=== PATIENT | male | born 1935 | race Caucasian/White ===

== ENCOUNTER → 2016-07-22 | Outpatient (CLI) | payer OTHER ==
[~2016-07-22] MED LIST: ADVIL200 MG PO; ANTIVERT/2525 MG PO; ARICEPT10 M1 PO; ASPIRIN LOW DOS81 MG PO; ASPIRIN81 M1 PO; AVODART0.5 MG PO; CATAPRES0.1 MG PO; CIPROFLOXACIN250 MG PO; DIABETA5 MG PO; DYAZIDE 25 MG-31 CAP PO; FLAGYL500 MG PO; FLOMAX0.4 MG PO; GLIMEPIRIDE2 MG PO; GLUCOPHAGE500 MG PO; IMDUR; IMDUR SA30 MG PO; ISORDIL TITRADOS5 MG PO; LIPITOR40 MG PO; LISINOPRIL40 MG PO; METFORMIN HCL500 MG PO; METFORMIN PO; METFORMIN500 MG PO; MICRO-K10 MEQ PO; NORCO 5-325 TA1 EACH PO; PEPCID20 MG PO; PLAVIX75 MG PO; POTASSIUM CHLO10 ME1; PREVACID SOLUTA30 MG PO; TENORMIN50 MG PO; VICODIN 5/500 505 MG PO; VICODIN 500 MG-1 TAB PO; ZESTRIL,PRINIVI40 MG PO; ZOCOR40 MG PO; Zofran4 MG PO
[2016-07-22 13:22] LABS: HEMOGLOBIN A1c 9.9 % (4.8-5.6)
[2016-07-22 13:35] LABS: POTASSIUM 4.5 mmol/L (3.5-5.1)
[2016-07-22 13:41] LABS: THYROID STIM HORMONE (HS) 2.29 uIU/ml (0.358-4.75)
== END | disposition home or self-care (01) ==
LOC: LAB 12:29
PROVIDERS: Family Medicine
DX: E78.00 Pure hypercholesterolemia, unspecified (principal); E11.9 Type 2 diabetes mellitus without complications

== ENCOUNTER 2016-09-16 14:26 | Inpatient (IN) | payer OTHER ==
[~2016-09-16] VITALS: Ht 182.8 cm; Wt 75.9 kg
[2016-09-16 15:22] VITALS: BP 100/58
[2016-09-16] MEDS ORDERED: METFORMIN HCL1000 MG PO (15:23)
[2016-09-16 16:03] LABS: BASO # 0.1 10*3/uL (0.0-0.1); BASO % 0.6 % (0.0-1.0); EOS # 0.3 10*3/uL (0.0-0.4); EOS % 3.1 % (1.0-4.0); HEMATOCRIT 38.2 % (42.0-52.0); HEMOGLOBIN 13.3 g/dl (14.0-18.0); IG # 0.1 10*3/uL (0.0-0.1); LYMPH # 2.7 10*3/uL (1.3-4.4); MEAN CORPUSCULAR HGB CONC 34.8 g/dl (33.0-37.0); MEAN PLATELET VOLUME 10.8 fl (9.6-12.3); MONO # 0.8 10*3/uL (0.1-1.0); MONO % 8.5 % (3.0-9.0); NEUT # 5.1 10*3/uL (2.3-7.9); PLATELET COUNT AUTOMATED 162 10*3/uL (130-400); RED BLOOD COUNT 4.15 10*6/uL (4.50-5.90); RED CELL DISTRI WIDTH 13.7 % (0-14.5)
[2016-09-16 16:20] LABS: INTERNATIONAL NORM RATIO 1.1 (2.0-3.5); PROTHROMBIN TIME 11.4 SECONDS (9.0-12.4)
[2016-09-16 16:21] LABS: ALKALINE PHOSPHATASE 49 U/L (45-117); BILIRUBIN, TOTAL 0.7 mg/dl (0.2-1.0); BUN 42 mg/dl (7-24); CARBON DIOXIDE 22 mmol/L (21-32); CHLORIDE 107 mmol/L (98-107); CKMB 0.8 ng/ml (0.5-3.6); CPK 148 U/L (39-308); EST GLOM FILT AFRICAN AMERICAN 44 ml/min; GLUCOSE 168 mg/dL (65-99); MAGNESIUM 1.6 mg/dL (1.5-2.1); POTASSIUM 5.1 mmol/L (3.5-5.1); SGOT/AST 19 IU/L (3-35); SGPT/ALT 29 U/L (12-78); SODIUM 142 mmol/L (136-145); TOTAL PROTEIN 7.7 gm/dL (6.4-8.2)
[2016-09-16 16:24] LABS: C-REACTIVE PROTEIN < 0.29 MG/DL (0-0.3)
[2016-09-16 16:26] LABS: TROPONIN I 0.072 ng/ml (<0.045)
[2016-09-16 16:32] VITALS: BP 125/65
[2016-09-16 17:16] VITALS: BP 111/58
[2016-09-16 17:59] LABS: LA>2 REFLEX 2 HR DRAW NOW
[2016-09-16 19:12] VITALS: BP 123/51
[2016-09-16 20:00] VITALS: BP 155/89
[2016-09-16 20:09] LABS: LA>2 REFLEX 4 HR DRAW NOW
[2016-09-17] VITALS: BP 119/59
[2016-09-17 06:13] LABS: BASO % 0.5 % (0.0-1.0); EOS # 0.3 10*3/uL (0.0-0.4); EOS % 3.4 % (1.0-4.0); HEMATOCRIT 38.6 % (42.0-52.0); HEMOGLOBIN 13.8 g/dl (14.0-18.0); LYMPH # 2.1 10*3/uL (1.3-4.4); LYMPH % 25.7 % (27.0-41.0); MEAN CELL VOLUME 90.8 fl (80.0-94.0); MEAN CORPUSCULAR HGB 32.5 pg (27.0-31.0); MEAN CORPUSCULAR HGB CONC 35.8 g/dl (33.0-37.0); MEAN PLATELET VOLUME 10.8 fl (9.6-12.3); MONO # 0.8 10*3/uL (0.1-1.0); MONO % 10.2 % (3.0-9.0); NEUT # 4.8 10*3/uL (2.3-7.9); NEUT % 59.8 % (47.0-73.0); PLATELET COUNT AUTOMATED 162 10*3/uL (130-400); RED BLOOD COUNT 4.25 10*6/uL (4.50-5.90); RED CELL DISTRI WIDTH 13.2 % (0-14.5)
[2016-09-17 06:15] LABS: CKMB 1.1 ng/ml (0.5-3.6)
[2016-09-17 06:21] LABS: HEMOGLOBIN A1c 7.4 % (4.8-5.6)
[2016-09-17 06:35] LABS: BUN 37 mg/dl (7-24); CARBON DIOXIDE 23 mmol/L (21-32); CHLORIDE 109 mmol/L (98-107); CHOLESTEROL 136 mg/dL (<200); EST GLOM FILT AFRICAN AMERICAN > 60 ml/min; GLUCOSE 134 mg/dL (65-99); HDL CHOLESTEROL 49 mg/dl (40-60); LDL CHOLESTEROL 63 mg/dL (9-159); MAGNESIUM 1.4 mg/dL (1.5-2.1); PHOSPHOROUS 3.1 mg/dL (2.5-4.9); POTASSIUM 4.6 mmol/L (3.5-5.1); SODIUM 143 mmol/L (136-145); TRIGLYCERIDES 122 mg/dl (<150); VLDL CHOLESTEROL 24 mg/dL (6-40)
[2016-09-17 06:59] LABS: FOLIC ACID 17.7 ng/mL (>5.38)
[2016-09-17 08:00] VITALS: BP 136/78
[2016-09-17] MEDS ORDERED: IMDUR SA60 M1 PO (09:53)
[2016-09-17] MEDS ORDERED: VITAMIN D5000 I3 PO (10:14)
[2016-09-17 10:23] LABS: BILIRUBIN NEGATIVE (NEGATIVE); BLOOD NEGATIVE (NEGATIVE); CLARITY CLEAR (CLEAR); COLOR YELLOW (YELLOW); GLUCOSE 2+ (NEGATIVE); KETONE NEGATIVE (NEGATIVE); LEUKO ESTERASE 1+ (NEGATIVE); NITRITE NEGATIVE (NEGATIVE); PH 5.5 (5.0-9.0); PROTEIN NEGATIVE (NEGATIVE)
[2016-09-17 10:35] LABS: URINE REFLEX COMMENT YES (NO)
== END 2016-09-17 10:49 | disposition home or self-care (01) | DRG 683 ==
LOC: ED 14:26 → 5E 16:45 → EDHOLD 16:45 → 5E 17:03
PROVIDERS: Emergency Medicine; Student in an Organized Health Care Education/Training Program
DX: N17.0 Acute kidney failure with tubular necrosis (principal); E87.2 Acidosis; E11.22 Type 2 diabetes mellitus with diabetic chronic kidney disease; F03.90 Unspecified dementia, unspecified severity, without behavioral disturbance, psychotic disturbance, mood disturbance, and anxiety; E86.0 Dehydration; D64.9 Anemia, unspecified; H91.90 Unspecified hearing loss, unspecified ear; J44.9 Chronic obstructive pulmonary disease, unspecified; E78.00 Pure hypercholesterolemia, unspecified; I12.9 Hypertensive chronic kidney disease with stage 1 through stage 4 chronic kidney disease, or unspecified chronic kidney disease; M19.90 Unspecified osteoarthritis, unspecified site; N40.0 Benign prostatic hyperplasia without lower urinary tract symptoms; I25.10 Atherosclerotic heart disease of native coronary artery without angina pectoris; N18.3 Chronic kidney disease, stage 3 (moderate); I25.2 Old myocardial infarction; Z86.73 Personal history of transient ischemic attack (TIA), and cerebral infarction without residual deficits; Z90.49 Acquired absence of other specified parts of digestive tract; Z83.3 Family history of diabetes mellitus; Z82.49 Family history of ischemic heart disease and other diseases of the circulatory system; Z79.82 Long term (current) use of aspirin; Z79.84 Long term (current) use of oral hypoglycemic drugs; Z79.899 Other long term (current) drug therapy

== ENCOUNTER → 2016-10-17 | Outpatient (CLI) | payer OTHER ==
[~2016-10-17] MED LIST changes: +IMDUR SA60 M1 PO; +METFORMIN HCL1000 MG PO; +VITAMIN D5000 I3 PO
[2016-10-17 13:47] LABS: POTASSIUM 5.1 mmol/L (3.5-5.1)
[2016-10-17 14:22] LABS: HEMOGLOBIN A1c 6.9 % (4.8-5.6)
== END | disposition home or self-care (01) ==
LOC: LAB 13:12
PROVIDERS: Family Medicine
DX: E11.9 Type 2 diabetes mellitus without complications (principal)

== ENCOUNTER → 2017-04-19 | Outpatient (CLI) | payer OTHER ==
[2017-04-19 18:23] LABS: BUN 24 mg/dl (7-24); CHLORIDE 108 mmol/L (98-107); CREATININE 1.31 mg/dL (0.70-1.30); POTASSIUM 4.9 mmol/L (3.5-5.1); SODIUM 143 mmol/L (136-145)
[2017-04-19 18:26] LABS: CHOLESTEROL 117 mg/dL (<200); CPK 214 U/L (39-308); HDL CHOLESTEROL 47 mg/dl (40-60); LDL CHOLESTEROL 38 mg/dL (9-159); TRIGLYCERIDES 161 mg/dl (<150); VLDL CHOLESTEROL 32 mg/dL (6-40)
== END | disposition home or self-care (01) ==
LOC: LAB 17:21
PROVIDERS: Family Medicine
DX: E11.9 Type 2 diabetes mellitus without complications (principal)

== ENCOUNTER → 2017-07-22 | Outpatient (CLI) | payer OTHER ==
[2017-07-22 13:00] LABS: BUN 27 mg/dl (7-24); CHLORIDE 108 mmol/L (98-107); CHOLESTEROL 133 mg/dL (<200); CREATININE 1.28 mg/dL (0.70-1.30); HDL CHOLESTEROL 46 mg/dl (40-60); LDL CHOLESTEROL 53 mg/dL (9-159); POTASSIUM 4.6 mmol/L (3.5-5.1); SODIUM 142 mmol/L (136-145); TRIGLYCERIDES 172 mg/dl (<150); VLDL CHOLESTEROL 34 mg/dL (6-40)
== END | disposition home or self-care (01) ==
LOC: LAB 11:47
PROVIDERS: Family Medicine
DX: E11.9 Type 2 diabetes mellitus without complications (principal); E78.00 Pure hypercholesterolemia, unspecified

== ENCOUNTER → 2019-05-27 | Outpatient (CLI) | payer OTHER ==
[2019-05-27 14:18] LABS: CREATININE 1.78 mg/dL (0.70-1.30); POTASSIUM 4.2 mmol/L (3.5-5.1)
[2019-05-27 14:29] LABS: THYROID STIM HORMONE (HS) 2.85 uIU/ml (0.358-4.75)
== END | disposition home or self-care (01) ==
LOC: LAB 13:26
PROVIDERS: Family Medicine
DX: E11.9 Type 2 diabetes mellitus without complications (principal); I10 Essential (primary) hypertension; E78.2 Mixed hyperlipidemia

== ENCOUNTER 2019-12-19 13:16 | Inpatient (IN) | payer OTHER ==
[~2019-12-19] VITALS: Ht 175.2 cm; Wt 64.0 kg
[2019-12-19 13:21] VITALS: BP 122/67
[2019-12-19 14:07] LABS: BASO # 0.1 10*3/uL (0.0-0.1); BASO % 0.9 % (0.0-1.0); EOS # 0.2 10*3/uL (0.0-0.4); EOS % 2.3 % (1.0-4.0); HEMATOCRIT 35.5 % (42.0-52.0); LYMPH # 1.4 10*3/uL (1.3-4.4); LYMPH % 16.8 % (27.0-41.0); MEAN CELL VOLUME 95.4 fl (80.0-94.0); MEAN CORPUSCULAR HGB 32.3 pg (27.0-31.0); MEAN CORPUSCULAR HGB CONC 33.8 g/dl (33.0-37.0); MEAN PLATELET VOLUME 10.8 fl (9.6-12.3); MONO # 0.7 10*3/uL (0.1-1.0); MONO % 8.6 % (3.0-9.0); NEUT # 5.8 10*3/uL (2.3-7.9); NEUT % 70.5 % (47.0-73.0); PLATELET COUNT AUTOMATED 186 10*3/uL (130-400); RED BLOOD COUNT 3.72 10*6/uL (4.50-5.90); RED CELL DISTRI WIDTH 13.4 % (0-14.5); WHITE BLOOD COUNT 8.2 10*3/uL (4.8-10.8)
[2019-12-19 14:19] LABS: ACT PARTIAL THROMBO TIME 25.6 SECONDS (20.0-32.1)
[2019-12-19 14:22] LABS: ALBUMIN 3.8 gm/dl (3.1-4.5); ALKALINE PHOSPHATASE 69 U/L (45-117); BUN 57 mg/dl (7-24); CHLORIDE 114 mmol/L (98-107); CREATININE 2.62 mg/dL (0.70-1.30); LIPASE 113 U/L (73-393); POTASSIUM 5.1 mmol/L (3.5-5.1); SGOT/AST 17 IU/L (3-35); SGPT/ALT 21 U/L (12-78); SODIUM 142 mmol/L (136-145); TOTAL PROTEIN 7.5 gm/dL (6.4-8.2); TROPONIN I 0.031 ng/ml (<0.045)
[2019-12-19 14:47] VITALS: BP 118/64
--- NOTE | 2019-12-19 15:53 | NUR ---
PT W/O ACUTE DISTRESS NOTED WITH FAMILY AT BEDSIDE,SAFETY PRECAUTIONS INTACT AND CALL LIGHT WITHIN REACH,NO COMPLAINTS VOICED PT UNABLE TO PROVIDE URINE SAMPLE.
[2019-12-19 16:26] VITALS: BP 118/60
[2019-12-19 16:45] VITALS: BP 122/72
--- NOTE | 2019-12-19 16:45 | NUR ---
The assessment has been completed. DAKOTA WILLIAM Time: 1644 A 84 year old MALE admitted to 5E under services of EDWIGE TEMPLE DO Pt. arrived via ambulance from ER. Chief complaint: DIZZINESS,DIARRHEA,DECRASED APPETITE,DECREASED FLUID INTAKE. WEAKNESS AND BACK PAIN THAT STARTED A COUPLE WEEKS AGO. DAUGHTER IN LAW STATES PT IS WORSE TODAY AND WHEN SHE KEPT TRYING TO GET HIM OUT OF BED KEPT FALLING BACK. DAKOTA WILLIAM
--- NOTE | 2019-12-19 17:00 | NUR ---
CRITICAL LACTIC ACID CALLED TO DR ORTIZ WELL BLOOD SUGAR OF 50. ORDERS RECIEVED
--- NOTE | 2019-12-19 17:10 | NUR ---
Hep Lock discontinued. Site asymptomatic. Pressure applied. Sterile dressing applied. DAKOTA WILLIAM IV started left wrist with # 22protective cath after 1 attempts. Site prepped with Chloroprep. Sterile dressing applied. Patient tolerated procedure well. DAKOTA WILLIAM
[2019-12-19] MEDS ORDERED: DONEPEZIL HYDROC5 M1 PO (17:51)
[2019-12-19] MEDS ORDERED: FINASTERIDE5 M1 PO (17:51)
[2019-12-19] MEDS ORDERED: HYDR25T PO (17:52)
--- NOTE | 2019-12-19 18:00 | NUR ---
DR ORTIZ NOTIFIED PTS MED REC UP TO DATE. HE ALSO STATES HE SPOKE WITH PTS SON WHO IS POA AND THAT PT IS A DNRCCA.
--- NOTE | 2019-12-19 18:04 | NUR ---
PTS REPEAT BLOOD GLUCOSE 109. WILL CONTINUE TO MONITOR.
[2019-12-19 20:00] VITALS: BP 153/83
[2019-12-20] VITALS: BP 150/79
--- NOTE | 2019-12-20 01:55 | NUR ---
PATIENT HAS RIPPED 3 IV'S OUT AND TUBING APART. PATIENT CLIMBING OUT OF BED AND TAKING HEART MONITOR OFF PATIENT PLACED IN BILAT SOFT WRIST RESTRAINTS AT THIS TIME.
[2019-12-20 04:52] LABS: BILIRUBIN NEGATIVE; BLOOD NEGATIVE (NEGATIVE); CLARITY CLOUDY (CLEAR); COLOR YELLOW (YELLOW); GLUCOSE NEGATIVE; KETONE NEGATIVE; LEUKO ESTERASE NEGATIVE (NEGATIVE); NITRITE NEGATIVE (NEGATIVE); SPECIFIC GRAVITY 1.015 (1.001-1.030); UROBILINOGEN 0.2 E.U./dl (0.0-1.0)
[2019-12-20 04:58] LABS: RBC 0-2 rbc/hpf (0-2); WBC 0-2 wbc/hpf (0-5)
--- NOTE | 2019-12-20 06:19 | NUR ---
PATIENT HAS SPENT THE NIGHT AT NURSES STATION IN [facility]. PATIENT HAS MANAGED TO LEAVE IV IN AT THIS TIME. BUT HEART MONITOR IS OFF PATIENT KEPT TAKING IT OFF DOCTOR ERNST TO THE FLOOR WAS INFORMED OF PATIENT NOT WEARING MONITOR SHE SAID SHE WAS FINE WITH THAT.
[2019-12-20 06:24] LABS: BASO # 0.1 10*3/uL (0.0-0.1); BASO % 0.7 % (0.0-1.0); EOS # 0.3 10*3/uL (0.0-0.4); EOS % 3.4 % (1.0-4.0); HEMATOCRIT 32.1 % (42.0-52.0); LYMPH # 1.3 10*3/uL (1.3-4.4); LYMPH % 17.5 % (27.0-41.0); MEAN CELL VOLUME 95.8 fl (80.0-94.0); MEAN CORPUSCULAR HGB 32.5 pg (27.0-31.0); MEAN PLATELET VOLUME 11.2 fl (9.6-12.3); MONO # 0.7 10*3/uL (0.1-1.0); MONO % 9.2 % (3.0-9.0); NEUT % 68.2 % (47.0-73.0); PLATELET COUNT AUTOMATED 174 10*3/uL (130-400); RED BLOOD COUNT 3.35 10*6/uL (4.50-5.90); RED CELL DISTRI WIDTH 13.6 % (0-14.5); WHITE BLOOD COUNT 7.3 10*3/uL (4.8-10.8)
[2019-12-20 06:56] LABS: ALBUMIN 3.6 gm/dl (3.1-4.5); CREATININE 2.07 mg/dL (0.70-1.30); POTASSIUM 4.5 mmol/L (3.5-5.1)
--- NOTE | 2019-12-20 07:00 | NUR ---
PT IS NOT IN RESTRAINTS AT THIS TIME.
[2019-12-20 07:04] LABS: FREE T4 1.01 ng/dl (0.76-1.46); THYROID STIM HORMONE (HS) 3.53 uIU/ml (0.358-4.75)
--- NOTE | 2019-12-20 07:24 | NUR ---
DEXTROSE GIVEN FOR BLOOD SUGAR OF 54 PER ORDER. WILL CONTINUE TO MONITOR.
--- NOTE | 2019-12-20 07:29 | NUR ---
PHYSICAL THERAPY Screen and PT eval received will follow thank you Rosa Elena Han PT
--- NOTE | 2019-12-20 07:30 | NUR ---
Occupational therapy order and nursing screen received. Will follow up with the patient for completion of an OT evaluation. Thank you. Nicole Johnson, OTR/L
--- NOTE | 2019-12-20 07:30 | NUR ---
PT RESTING IN FARA CHAIR AT @ NURSES STATION AT THIS TIME. RESPS EASY AND NON LABORED. NO S/S OF DISTRESS NOTED. VSS. WHITE BOARD UPDATED. A/O TO SELF. IVF INFUSING W/O INCIDENT. VERY [place]. NO DIARRHEA/S.S OF PAIN NOTED. POOR ORAL INTAKE. WILL CONTINUE TO MONITOR. BODY ALARM INTACT.
[2019-12-20 08:00] VITALS: BP 130/56
--- NOTE | 2019-12-20 08:00 | NUR ---
PT REFUSING BLOOD SUGAR RE-CHECK. WILL RE-ATTEMPT
[2019-12-20 08:19] LABS: VITAMIN D, 25-HYDROXY 53.3 ng/mL (30-100)
--- NOTE | 2019-12-20 08:43 | NUR ---
PT PULLING AT IV TUBING. ARM UNWRAPPED AND IV SITE CHECKED. SITE ASYMPTOMATIC. TUBIGRIP APPLIED TO ARM. WILL CONTINUE TO MONITOR. BODY ALARM INTACT.
--- NOTE | 2019-12-20 08:50 | NUR ---
PHYSICAL THERAPY Physical Therapy evaluation completed on 5th floor with full evaluation to follow. Recommend physical therapy per plan of care, usure of PLOF and home setting/set up level of care due to pt's dementia and very [place]. SNF vs Home with 24 hr care and HH pending progress and family input upon discharge. Thank you for this referral. Rosa Elena Han PT
--- NOTE | 2019-12-20 09:00 | NUR ---
case management visits with patient, patient confused and not able to carry on a conversation, case management will contact patient's family regarding discharge plan and any discharge needs
--- NOTE | 2019-12-20 09:20 | NUR ---
Occupational Therapy evaluation completed on five with full evaluation to follow. Recommend occupational therapy per plan of care and SNF versus home with HH with 27/10 supervision assist pending patient progression upon discharge. Thank you for this referral. Nicole Johnson OTR/L
--- NOTE | 2019-12-20 10:49 | NUR ---
PER DR OR[facility]
--- NOTE | 2019-12-20 11:00 | NUR ---
case management contacted patient's family, spoke to daughter in law Anabell, she stated patient lives at home with her and her , and one other family member. she states he has all of the equipment he needs at home. she stated patient will return home when discharged. she stated he has a cane to use but never ambulates alone, she states someone is always with him, discussed with her [facility] and educated her on the services they provide, she declines any services at this time, case managment will follow
--- NOTE | 2019-12-20 11:00 | NUR ---
BLOOD SUGAR 163.
--- NOTE | 2019-12-20 11:07 | NUR ---
UPDATED ON POC. QUESTIONS ANSWERED
--- NOTE | 2019-12-20 11:22 | NUR ---
PT TAKEN OFF FLOOR TO CT
--- NOTE | 2019-12-20 11:30 | NUR ---
PHYSICAL THERAPY Per discussion with Nursing, patient being tranported down for medical testing and not available for second therapy visit at this time. Will continue per POC as able. Jesus Camilo, OUTPATIENT PHARMACY MANAGER
--- NOTE | 2019-12-20 11:45 | NUR ---
PT BACK FROM CT. FOUND TO HAVE PULLED OFF ID BANDS AGAIN. REAPPLIED TO ANKLES-FALL RISK/BROWN BAND/DNRCCA/ID BAND.
[2019-12-20 12:00] VITALS: BP 124/67
--- NOTE | 2019-12-20 12:06 | NUR ---
OT NOTE Pt at nurses station up in gabino chair agreeable to 16 minute OT session. Identified by name and date of with no complaints. Pt was transferred via chair to room. Sit-stand Iftikhar x2 with w/w for UB support and safety. Functional mobility from gabino chair to hallway Iftikhar with w/w for safety and navigation. Functional mobility from hallway to bathroom, back to gabino chair Iftikhar with w/w for navigation and safety. Pt was able to stand sink side unsupported at Iftikhar for sequencing to wash hands, Standing balance F+. Pt required multiple verbal and tactile cues for safety and command follow. Challenged pts standing balance by weight shifting and crossing midline. balance f+.Pt left in gabino chair with attached table at nurses station Continue with POC as indicated. MASOOD Antony/APURVA Garsia/Ap
--- NOTE | 2019-12-20 13:21 | NUR ---
PT REFUSING TO EAT LUNCH. STATING HE DOES NOT WANT IT.
--- NOTE | 2019-12-20 15:17 | NUR ---
OCCUPATIONAL THERAPY CO-SIGN I approve of the Occupational Therapy notes written above. GUALBERTO WILLIAMSON, OTR/L
[2019-12-20 16:00] VITALS: BP 121/70
--- NOTE | 2019-12-20 16:56 | NUR ---
PT RESTING. RESPS EASY AND NON LABORED. NO S/S OF DISTRESS.BODY ALARM INTACT. WILL CONTINUE TO MONITOR.
--- NOTE | 2019-12-20 17:00 | NUR ---
PT ASSISTED TO BATHROOM PER HIS REQUEST. OFFERED TO HELP PT TO BED OR THE CHAIR-PT PICKED THE GERICHAIR. CURRENTLY EATING DINNER AT NURSES STATION. BODY ALARM ON. WILL CONTINUE TO MONITOR.
--- NOTE | 2019-12-20 17:32 | NUR ---
UPDATED ON POC.QUESTIONS ANSWERED.
[2019-12-20 20:00] VITALS: BP 152/80
--- NOTE | 2019-12-20 20:30 | NUR ---
PATIENT SITTING AT NURSES STATION IN FARA CHAIR, IN NO DISTRESS ON ROOM AIR, BLOOD NOTED TO RT SIDE, NEW SKIN TEAR FOUND ON RT ELBOW. PT CLEANED AND OPTIFOAM APPLIED. PT TOLERATED WELL. DENIES PAIN/DISCOMFORT TO AREA.
--- NOTE | 2019-12-20 20:50 | NUR ---
FAMILY UPDATED ON PT
--- NOTE | 2019-12-20 20:54 | NUR ---
PATIENT SPIT PO RESTORIL DOWN THE HALLWAY. SECOND DOSE RETRIEVED FROM PYXIS & TAKEN WITH A SIP OF GINGERALE.
--- NOTE | 2019-12-20 21:54 | NUR ---
RESTORIL EFFECTIVE. PATIENT IS SLEEPING.
[2019-12-21] VITALS: BP 108/58
--- NOTE | 2019-12-21 02:00 | NUR ---
PATIENT SLEEPING, RESPS EASY AND REGULAR ON ROOM AIR. BED ALARM MAINTAINED FOR SAFETY. CALL LIGTH IN REACH
--- NOTE | 2019-12-21 05:44 | NUR ---
dr ferreira notified of skin tear to rt arm
--- NOTE | 2019-12-21 06:00 | NUR ---
PATIENT REFUSING WOUND CARE PHOTOS
[2019-12-21 06:12] LABS: CREATININE 1.75 mg/dL (0.70-1.30); POTASSIUM 4.1 mmol/L (3.5-5.1)
--- NOTE | 2019-12-21 07:27 | NUR ---
Shift chart check completed.
[2019-12-21 08:00] VITALS: BP 136/57
--- NOTE | 2019-12-21 08:09 | NUR ---
HEEL RAISERS ON, BED IN LOWEST POSITION, BED ALARM, DNRCCA & FALL RISK SLIPPERS
--- NOTE | 2019-12-21 08:16 | NUR ---
PHYSICAL THERAPY PT screen received, pt was evaluated 12/19 and is on caseload. Thank you. Gurmeet Ocampo SPT Rosa Elena Han PT
--- NOTE | 2019-12-21 08:28 | NUR ---
OT NOTE A duplicate nursing screen was received. Patient was evaluated for occupational therapy and placed on caseload on 12/20/2019. Will continue with POC as able. Thank you. Nicole Johnson, OTR/L
--- NOTE | 2019-12-21 09:22 | NUR ---
OT NOTE Attempted OT visit this morning at 0922. At this time pt unable to arouse, nurse reported "hes very drowsy from medication". Will check back at a later date or jaida. Continue with POC when able. MASOOD Antony/APURVA Garsia/Ap
--- NOTE | 2019-12-21 09:25 | NUR ---
PHYSICAL THERAPY Patient was supine in bed this am when approached for therapy and too "drowsy" to participate secondary to recent Medication. Per discussion with Nurse, therapist advised to check back later this date prior to attempting therapy to check on patient status. Will continue per POC as able. Jesus Camilo, MOTORBOAT MECHANIC INBOARD
--- NOTE | 2019-12-21 09:55 | NUR ---
DC PICTURE TAKEN - PT REFUSED TO TAKE PO PILLS AT THIS TIME ... IV discontinued. Site asymptomatic. Pressure applied. Sterile dressing applied. VALENTINA PETER
--- NOTE | 2019-12-21 10:45 | NUR ---
PHYSICAL THERAPY Patient seen this am 1;1 for therapy visit and was supine in bed upon therapist arrival. Patient identified by name / and presented with a bit of confusion this session, requiring repeated v/c's to focus on task. Patient transfers supine to sit EOB with MIN A, needing a minute or so to collect himself. Patient completed sit to stand transfer, CGA, use of wh walker standing support and ambulated 30'x 1, wh walker, CGA straight line keeley and MIN A for all 90/180 turns secondary to very unsteady step sequence. Patient also demonstrated bouts of initial "scissoring" gait pattern and returned to supine in bed with mild fatigue. Patient remained in bed with call light, tray table and bed alarm for safety. Will continue per POC as tolerated, total treatment time 14 minutes. Jesus Camilo, TECHNOLOGY INSTRUCTOR
--- NOTE | 2019-12-21 11:03 | NUR ---
OT NOTE Pt laying supine in bed with head elevated agreeable to 15 minute OT session. Identified by name and date of with no complaints of pain. Transfer supine to EOB Iftikhar X2. Sit-stand from EOB Iftikhar with w/w for UB support and safety. Functional mobility from EOB to hallway Iftikhar with w/w for unsteady stance and crossing legs when walking. Functional mobility from hallway to bathroom Iftikhar with w/w for safety. Pt stood sink side unsupported to wash hands at Iftikhar for F- balance. Functional mobility from bathroom to EOB Iftikhar with w/w. Pt was able to tolerate appro 5 minutes of activity tolerance without fatigue. Through out session pt required multiple verbal and tactile cues for safety, walker navigation and command follow. Pt was able to postion self in bed at [facility], however required Iftikhar x2 to be pulled up in bed. Alarm active and call light in reach. Continue d/c recommended SNF. MASOOD Antony/APURVA Garsia/Ap
--- NOTE | 2019-12-21 11:13 | NUR ---
FAMILY WILL BE HERE AT 1136
--- NOTE | 2019-12-21 11:35 | NUR ---
Discharge instructions reviewed with patient/family. Patient receptive and verbalizes understanding. Follow-up care arranged. Written instructions given to patient/family. TAKEN OUT VIA WHEEL CHAIR WITH BELONGINGS VALENTINA PETER
--- NOTE | 2019-12-21 15:49 | NUR ---
OCCUPATIONAL THERAPY CO-SIGN I approve of the Occupational Therapy notes written above. GUALBERTO WILLIAMSON, OTR/L
--- NOTE | 2019-12-22 07:37 | NUR ---
PHYSICAL THERAPY CO-SIGN I approve of the Phyical Therapy notes written above. Rosa Elena Han PT
== END 2019-12-21 11:35 | disposition home or self-care (01) | DRG 640 ==
LOC: ED 13:16 → EDHOLD 15:01 → 5E 15:01
PROVIDERS: Emergency Medicine; Internal Medicine; ADMIT Internal Medicine; ATTEND Internal Medicine
DX: E86.0 Dehydration (principal); N17.0 Acute kidney failure with tubular necrosis; J44.9 Chronic obstructive pulmonary disease, unspecified; E78.00 Pure hypercholesterolemia, unspecified; M19.90 Unspecified osteoarthritis, unspecified site; D64.9 Anemia, unspecified; N40.0 Benign prostatic hyperplasia without lower urinary tract symptoms; I25.10 Atherosclerotic heart disease of native coronary artery without angina pectoris; N18.9 Chronic kidney disease, unspecified; F03.90 Unspecified dementia, unspecified severity, without behavioral disturbance, psychotic disturbance, mood disturbance, and anxiety; E11.22 Type 2 diabetes mellitus with diabetic chronic kidney disease; H91.93 Unspecified hearing loss, bilateral; S51.011A Laceration without foreign body of right elbow, initial encounter; Z66 Do not resuscitate; Z51.5 Encounter for palliative care; I12.9 Hypertensive chronic kidney disease with stage 1 through stage 4 chronic kidney disease, or unspecified chronic kidney disease; Z98.41 Cataract extraction status, right eye; Z90.49 Acquired absence of other specified parts of digestive tract; I25.2 Old myocardial infarction; Z86.73 Personal history of transient ischemic attack (TIA), and cerebral infarction without residual deficits; W18.39XA Other fall on same level, initial encounter; Y93.89 Activity, other specified; Y92.89 Other specified places as the place of occurrence of the external cause; Y99.8 Other external cause status

== ENCOUNTER → 2019-12-26 | Outpatient (CLI) | payer OTHER ==
[~2019-12-26] MED LIST changes: +DONEPEZIL HYDROC5 M1 PO; +FINASTERIDE5 M1 PO; +HYDR25T PO
[2019-12-26 14:14] LABS: BASO # 0.1 10*3/uL (0.0-0.1); BASO % 0.7 % (0.0-1.0); EOS # 0.2 10*3/uL (0.0-0.4); EOS % 2.3 % (1.0-4.0); HEMATOCRIT 38.1 % (42.0-52.0); LYMPH % 19.3 % (27.0-41.0); MEAN CELL VOLUME 94.8 fl (80.0-94.0); MEAN CORPUSCULAR HGB 32.1 pg (27.0-31.0); MEAN CORPUSCULAR HGB CONC 33.9 g/dl (33.0-37.0); MEAN PLATELET VOLUME 10.6 fl (9.6-12.3); MONO # 0.9 10*3/uL (0.1-1.0); MONO % 9.1 % (3.0-9.0); NEUT # 6.9 10*3/uL (2.3-7.9); NEUT % 67.8 % (47.0-73.0); PLATELET COUNT AUTOMATED 216 10*3/uL (130-400); RED BLOOD COUNT 4.02 10*6/uL (4.50-5.90); RED CELL DISTRI WIDTH 13.6 % (0-14.5); WHITE BLOOD COUNT 10.2 10*3/uL (4.8-10.8)
[2019-12-26 14:40] LABS: ALBUMIN 3.5 gm/dl (3.1-4.5); CREATININE 2.03 mg/dL (0.70-1.30); POTASSIUM 4.1 mmol/L (3.5-5.1); TOTAL PROTEIN 7.1 gm/dL (6.4-8.2)
== END | disposition home or self-care (01) ==
LOC: LAB 13:52
PROVIDERS: ATTEND Internal Medicine
DX: E11.9 Type 2 diabetes mellitus without complications (principal); N17.9 Acute kidney failure, unspecified; E06.0 Acute thyroiditis

== ENCOUNTER 2020-08-14 18:19 | Inpatient (IN) | payer MEDICARE ==
[~2020-08-14] VITALS: Ht 177.8 cm; Wt 80.8 kg
[2020-08-14 18:23] VITALS: BP 151/92
[2020-08-14 19:08] LABS: BASO % 0.4 % (0.0-1.0); EOS # 0.1 10*3/uL (0.0-0.4); EOS % 1.9 % (1.0-4.0); HEMATOCRIT 34.3 % (42.0-52.0); LYMPH # 0.6 10*3/uL (1.3-4.4); LYMPH % 7.6 % (27.0-41.0); MEAN CELL VOLUME 97.7 fl (80.0-94.0); MEAN CORPUSCULAR HGB 31.6 pg (27.0-31.0); MEAN CORPUSCULAR HGB CONC 32.4 g/dl (33.0-37.0); MEAN PLATELET VOLUME 11.7 fl (9.6-12.3); MONO # 0.6 10*3/uL (0.1-1.0); MONO % 8.6 % (3.0-9.0); NEUT % 80.7 % (47.0-73.0); PLATELET COUNT AUTOMATED 125 10*3/uL (130-400); RED BLOOD COUNT 3.51 10*6/uL (4.50-5.90); RED CELL DISTRI WIDTH 13.5 % (0-14.5); WHITE BLOOD COUNT 7.5 10*3/uL (4.8-10.8)
[2020-08-14 19:27] LABS: ALBUMIN 3.6 gm/dl (3.1-4.5); CREATININE 2.48 mg/dL (0.70-1.30); POTASSIUM 5.3 mmol/L (3.5-5.1)
[2020-08-14 21:33] VITALS: BP 156/80
[2020-08-14 23:15] VITALS: BP 152/80
[2020-08-15 05:50] LABS: ALBUMIN 3.3 gm/dl (3.1-4.5); CREATININE 2.38 mg/dL (0.70-1.30); POTASSIUM 4.7 mmol/L (3.5-5.1); TOTAL PROTEIN 6.5 gm/dL (6.4-8.2)
[2020-08-15 05:58] LABS: THYROID STIM HORMONE (HS) 1.83 uIU/ml (0.358-4.75)
[2020-08-15 06:20] LABS: BASO % 0.4 % (0.0-1.0); EOS # 0.2 10*3/uL (0.0-0.4); HEMATOCRIT 32.2 % (42.0-52.0); LYMPH # 1.3 10*3/uL (1.3-4.4); LYMPH % 18.2 % (27.0-41.0); MEAN CORPUSCULAR HGB 31.6 pg (27.0-31.0); MEAN CORPUSCULAR HGB CONC 32.6 g/dl (33.0-37.0); MEAN PLATELET VOLUME 11.8 fl (9.6-12.3); MONO # 0.8 10*3/uL (0.1-1.0); NEUT # 4.9 10*3/uL (2.3-7.9); NEUT % 66.9 % (47.0-73.0); PLATELET COUNT AUTOMATED 136 10*3/uL (130-400); RED BLOOD COUNT 3.32 10*6/uL (4.50-5.90); RED CELL DISTRI WIDTH 13.4 % (0-14.5); WHITE BLOOD COUNT 7.3 10*3/uL (4.8-10.8)
[2020-08-15 06:38] LABS: ACT PARTIAL THROMBO TIME 25.9 SECONDS (20.0-32.1); INTERNATIONAL NORM RATIO 1.1 (2.0-3.5)
[2020-08-15 07:30] VITALS: BP 146/83
[2020-08-15 09:30] VITALS: BP 178/76
[2020-08-15 12:00] VITALS: BP 151/68
[2020-08-15 16:00] VITALS: BP 157/55
[2020-08-15 20:00] VITALS: BP 154/81
[2020-08-16] VITALS: BP 147/78
[2020-08-16 06:46] LABS: BASO # 0.1 10*3/uL (0.0-0.1); BASO % 0.8 % (0.0-1.0); EOS # 0.4 10*3/uL (0.0-0.4); EOS % 4.8 % (1.0-4.0); HEMATOCRIT 34.8 % (42.0-52.0); LYMPH # 1.3 10*3/uL (1.3-4.4); LYMPH % 16.4 % (27.0-41.0); MEAN CELL VOLUME 97.5 fl (80.0-94.0); MEAN CORPUSCULAR HGB 32.2 pg (27.0-31.0); MEAN PLATELET VOLUME 11.7 fl (9.6-12.3); MONO # 0.9 10*3/uL (0.1-1.0); MONO % 11.2 % (3.0-9.0); NEUT # 5.2 10*3/uL (2.3-7.9); NEUT % 66.2 % (47.0-73.0); PLATELET COUNT AUTOMATED 135 10*3/uL (130-400); RED BLOOD COUNT 3.57 10*6/uL (4.50-5.90); RED CELL DISTRI WIDTH 13.6 % (0-14.5); WHITE BLOOD COUNT 7.9 10*3/uL (4.8-10.8)
[2020-08-16 07:10] LABS: CREATININE 2.09 mg/dL (0.70-1.30); POTASSIUM 4.4 mmol/L (3.5-5.1)
[2020-08-16 08:00] VITALS: BP 154/71
[2020-08-16 12:00] VITALS: BP 149/64
[2020-08-16 16:00] VITALS: BP 138/85
[2020-08-16] MEDS ORDERED: ZESTRIL40 MG PO (16:02)
[2020-08-16] MEDS ORDERED: PIOGLITAZONE HC30 MG PO (16:05)
[2020-08-16] MEDS ORDERED: Amaryl2 MG PO (16:05)
[2020-08-16] MEDS ORDERED: HYDROCHLOROTHIA25 M1 PO (16:06)
[2020-08-16 20:00] VITALS: BP 162/69
[2020-08-16] MEDS ORDERED: REMERON15 M2 PO (21:02)
[2020-08-17] VITALS: BP 152/56
[2020-08-17 06:45] LABS: BASO % 0.6 % (0.0-1.0); EOS # 0.4 10*3/uL (0.0-0.4); EOS % 5.7 % (1.0-4.0); HEMATOCRIT 37.3 % (42.0-52.0); LYMPH # 1.6 10*3/uL (1.3-4.4); MEAN CELL VOLUME 99.2 fl (80.0-94.0); MEAN CORPUSCULAR HGB 31.4 pg (27.0-31.0); MEAN CORPUSCULAR HGB CONC 31.6 g/dl (33.0-37.0); MEAN PLATELET VOLUME 11.4 fl (9.6-12.3); MONO % 13.4 % (3.0-9.0); NEUT # 4.2 10*3/uL (2.3-7.9); NEUT % 57.9 % (47.0-73.0); PLATELET COUNT AUTOMATED 148 10*3/uL (130-400); RED BLOOD COUNT 3.76 10*6/uL (4.50-5.90); RED CELL DISTRI WIDTH 13.3 % (0-14.5); WHITE BLOOD COUNT 7.2 10*3/uL (4.8-10.8)
[2020-08-17 07:03] LABS: CREATININE 2.2 mg/dL (0.70-1.30); POTASSIUM 4.7 mmol/L (3.5-5.1)
[2020-08-17 08:00] VITALS: BP 146/81
[2020-08-17] MEDS ORDERED: ARICEPT10 M1 PO (11:23)
[2020-08-17] MEDS ORDERED: NAMENDA-5 PO (11:23)
== END 2020-08-17 12:07 | disposition home or self-care (01) | DRG 637 ==
LOC: ED 18:19 → EDHOLD 19:49 → 5E 19:49 → EDHOLD 21:35 → 5E 08-15 07:16
PROVIDERS: Hospitalist; Internal Medicine; Student in an Organized Health Care Education/Training Program; ADMIT Internal Medicine; ATTEND Internal Medicine
DX: E11.649 Type 2 diabetes mellitus with hypoglycemia without coma (principal); G93.41 Metabolic encephalopathy; N17.0 Acute kidney failure with tubular necrosis; E87.5 Hyperkalemia; D53.9 Nutritional anemia, unspecified; E86.0 Dehydration; J44.9 Chronic obstructive pulmonary disease, unspecified; E78.5 Hyperlipidemia, unspecified; I12.9 Hypertensive chronic kidney disease with stage 1 through stage 4 chronic kidney disease, or unspecified chronic kidney disease; E11.22 Type 2 diabetes mellitus with diabetic chronic kidney disease; D69.6 Thrombocytopenia, unspecified; M16.11 Unilateral primary osteoarthritis, right hip; G30.9 Alzheimer's disease, unspecified; F02.80 Dementia in other diseases classified elsewhere, unspecified severity, without behavioral disturbance, psychotic disturbance, mood disturbance, and anxiety; N18.4 Chronic kidney disease, stage 4 (severe); E78.00 Pure hypercholesterolemia, unspecified; N40.0 Benign prostatic hyperplasia without lower urinary tract symptoms; Z20.822 Contact with and (suspected) exposure to COVID-19; I25.10 Atherosclerotic heart disease of native coronary artery without angina pectoris; Z90.49 Acquired absence of other specified parts of digestive tract; Z98.41 Cataract extraction status, right eye; Z83.3 Family history of diabetes mellitus; Z82.49 Family history of ischemic heart disease and other diseases of the circulatory system; Z86.73 Personal history of transient ischemic attack (TIA), and cerebral infarction without residual deficits; Z79.82 Long term (current) use of aspirin; Z79.899 Other long term (current) drug therapy

== ENCOUNTER → 2020-09-24 | Outpatient (CLI) | payer MEDICARE ==
[~2020-09-24] MED LIST changes: +Amaryl2 MG PO; +HYDROCHLOROTHIA25 M1 PO; +NAMENDA-5 PO; +PIOGLITAZONE HC30 MG PO; +REMERON15 M2 PO; +ZESTRIL40 MG PO
[2020-09-24 21:24] LABS: BILIRUBIN Negative (Negative); BLOOD Negative (Negative); CLARITY Clear (Clear); COLOR Yellow (Yellow); GLUCOSE Negative (Negative); KETONE Negative (Negative); LEUKO ESTERASE Negative (Negative); NITRITE Negative (Negative); SPECIFIC GRAVITY 1.015 (1.001-1.030); UROBILINOGEN 0.2 E.U./dl (0.0-1.0)
[2020-09-24 21:56] LABS: BACTERIA TRACE; RBC 0-2 rbc/hpf (0-2); WBC 0-2 wbc/hpf (0-5)
== END | disposition home or self-care (01) ==
LOC: LAB 20:18
PROVIDERS: ATTEND Family Medicine
DX: N17.0 Acute kidney failure with tubular necrosis (principal); E16.2 Hypoglycemia, unspecified; E87.5 Hyperkalemia; F03.90 Unspecified dementia, unspecified severity, without behavioral disturbance, psychotic disturbance, mood disturbance, and anxiety

== ENCOUNTER 2020-12-06 15:12 | Inpatient (IN) | payer MEDICARE ==
[~2020-12-06] VITALS: Ht 187.9 cm; Wt 76.7 kg
[2020-12-06 15:19] VITALS: BP 102/54
[2020-12-06 17:30] LABS: BASO # 0.1 10*3/uL (0.0-0.1); BASO % 0.8 % (0.0-1.0); EOS # 0.3 10*3/uL (0.0-0.4); EOS % 4.7 % (1.0-4.0); HEMATOCRIT 36.9 % (42.0-52.0); LYMPH # 1.5 10*3/uL (1.3-4.4); LYMPH % 22.1 % (27.0-41.0); MEAN CELL VOLUME 94.9 fl (80.0-94.0); MEAN CORPUSCULAR HGB 31.6 pg (27.0-31.0); MEAN CORPUSCULAR HGB CONC 33.3 g/dl (33.0-37.0); MONO # 0.7 10*3/uL (0.1-1.0); MONO % 9.8 % (3.0-9.0); NEUT # 4.1 10*3/uL (2.3-7.9); NEUT % 62.1 % (47.0-73.0); PLATELET COUNT AUTOMATED 121 10*3/uL (130-400); RED BLOOD COUNT 3.89 10*6/uL (4.50-5.90); RED CELL DISTRI WIDTH 13.3 % (0-14.5); WHITE BLOOD COUNT 6.6 10*3/uL (4.8-10.8)
[2020-12-06 17:44] LABS: ALBUMIN 3.1 gm/dl (3.1-4.5); CREATININE 1.84 mg/dL (0.70-1.30); POTASSIUM 3.9 mmol/L (3.5-5.1); TOTAL PROTEIN 6.7 gm/dL (6.4-8.2)
[2020-12-06 19:00] VITALS: BP 112/62
[2020-12-06 23:00] VITALS: BP 118/68
[2020-12-07 01:50] VITALS: BP 146/83
[2020-12-07 07:06] LABS: BASO % 0.5 % (0.0-1.0); EOS # 0.3 10*3/uL (0.0-0.4); EOS % 4.5 % (1.0-4.0); HEMATOCRIT 34.3 % (42.0-52.0); LYMPH # 1.3 10*3/uL (1.3-4.4); LYMPH % 17.6 % (27.0-41.0); MEAN CORPUSCULAR HGB 31.6 pg (27.0-31.0); MEAN CORPUSCULAR HGB CONC 34.4 g/dl (33.0-37.0); MONO # 0.7 10*3/uL (0.1-1.0); MONO % 9.8 % (3.0-9.0); NEUT # 4.9 10*3/uL (2.3-7.9); NEUT % 67.1 % (47.0-73.0); PLATELET COUNT AUTOMATED 118 10*3/uL (130-400); RED BLOOD COUNT 3.73 10*6/uL (4.50-5.90); RED CELL DISTRI WIDTH 13.4 % (0-14.5); WHITE BLOOD COUNT 7.3 10*3/uL (4.8-10.8)
[2020-12-07 07:13] LABS: ALBUMIN 3.2 gm/dl (3.1-4.5); CREATININE 1.69 mg/dL (0.70-1.30); POTASSIUM 3.7 mmol/L (3.5-5.1); TOTAL PROTEIN 6.8 gm/dL (6.4-8.2)
[2020-12-07 08:00] VITALS: BP 166/98
[2020-12-07 10:15] LABS: VITAMIN D, 25-HYDROXY 52.3 ng/mL (30-100)
[2020-12-07 16:00] VITALS: BP 186/82
[2020-12-07] MEDS ORDERED: DIVALPROEX SOD125 MG PO (18:00)
[2020-12-07 20:00] VITALS: BP 159/94
[2020-12-08] VITALS: BP 184/86
[2020-12-08 07:31] LABS: POTASSIUM 3.7 mmol/L (3.5-5.1)
[2020-12-08 07:35] LABS: CREATININE 1.55 mg/dL (0.70-1.30)
[2020-12-08 08:00] VITALS: BP 136/85
[2020-12-08 12:00] VITALS: BP 116/73
== END 2020-12-08 14:00 | disposition hospice, home (50) | DRG 64 ==
LOC: ED 15:12 → EDHOLD 19:18 → 4E 19:18
PROVIDERS: Hospitalist; Internal Medicine; Student in an Organized Health Care Education/Training Program; ADMIT Internal Medicine; ATTEND Internal Medicine
DX: I63.9 Cerebral infarction, unspecified (principal); G93.41 Metabolic encephalopathy; E87.2 Acidosis; N18.4 Chronic kidney disease, stage 4 (severe); R62.7 Adult failure to thrive; R00.1 Bradycardia, unspecified; Z66 Do not resuscitate; N40.0 Benign prostatic hyperplasia without lower urinary tract symptoms; Z51.5 Encounter for palliative care; D53.9 Nutritional anemia, unspecified; Z20.822 Contact with and (suspected) exposure to COVID-19; D69.6 Thrombocytopenia, unspecified; I12.9 Hypertensive chronic kidney disease with stage 1 through stage 4 chronic kidney disease, or unspecified chronic kidney disease; E11.65 Type 2 diabetes mellitus with hyperglycemia; E11.22 Type 2 diabetes mellitus with diabetic chronic kidney disease; G30.9 Alzheimer's disease, unspecified; F02.80 Dementia in other diseases classified elsewhere, unspecified severity, without behavioral disturbance, psychotic disturbance, mood disturbance, and anxiety; J44.9 Chronic obstructive pulmonary disease, unspecified; E78.00 Pure hypercholesterolemia, unspecified; M19.90 Unspecified osteoarthritis, unspecified site; Z90.49 Acquired absence of other specified parts of digestive tract; I25.2 Old myocardial infarction; Z95.5 Presence of coronary angioplasty implant and graft; Z79.82 Long term (current) use of aspirin; Z79.899 Other long term (current) drug therapy

== ENCOUNTER 2020-12-29 03:05 | Emergency (ER) | payer MEDICARE ==
[~2020-12-29] VITALS: Ht 170.1 cm; Wt 90.7 kg
[~2020-12-29 03:05] MED LIST changes: +DIVALPROEX SOD125 MG PO
== END 2020-12-29 06:29 | disposition home or self-care (01) ==
LOC: ED 03:05
DX: S09.90XA Unspecified injury of head, initial encounter (principal); F03.90 Unspecified dementia, unspecified severity, without behavioral disturbance, psychotic disturbance, mood disturbance, and anxiety; Z79.899 Other long term (current) drug therapy; Z98.890 Other specified postprocedural states; Z90.49 Acquired absence of other specified parts of digestive tract; W19.XXXA Unspecified fall, initial encounter; Y93.89 Activity, other specified; Y92.89 Other specified places as the place of occurrence of the external cause; Y99.8 Other external cause status

== ENCOUNTER 2021-02-02 05:00 | Emergency (ER) | payer MEDICARE, MEDICAID | END 2021-02-02 06:05 | LOC: ED 05:00 | DX: Z13.89 Encounter for screening for other disorder (principal) ==